=== PATIENT | male | born 1975 | race Caucasian/White ===

== ENCOUNTER 2023-04-20 09:30 | Emergency (ER) | payer BC ==
[~2023-04-20] VITALS: Ht 180.3 cm; Wt 107.9 kg
[2023-04-20] MEDS ORDERED: SIMV10TA21 PO (09:44)
[2023-04-20] MEDS ORDERED: HYDR12.55 PO (09:44)
[2023-04-20] MEDS ORDERED: CEPH250T PO (09:44)
[2023-04-20] MEDS ORDERED: LISI20TA33 PO (09:44)
[2023-04-20] MEDS ORDERED: ISOVUE-370 76% 100ML VIAL As Ordered ONE (10:31)
[2023-04-20 10:33] LABS: BASO % 0.2 % (0.0-1.0); EOS % 0.3 % (0.0-3.0); HEMOGLOBIN 13.3 g/dl (13.5-17.5); LYMPH # 1.4 10^3/uL (1.5-5.0); LYMPH % 16.7 % (24.0-44.0); MEAN CORPUSCULAR HEMOGLOBIN 29.4 pg (27.0-33.0); MEAN CORPUSCULAR HGB CONC 34.1 g/dl (32.0-36.5); MEAN CORPUSCULAR VOLUME 86.3 fl (80.0-96.0); MONO # 0.8 10^3/uL (0.0-0.8); MONO % 9.2 % (2.0-8.0); NEUTROPHILS # 6.3 10^3/uL (1.5-8.5); NEUTROPHILS % 73.3 % (36.0-66.0); PLATELET COUNT, AUTOMATED 188 10^3/uL (150-450); RED BLOOD COUNT 4.52 10^6/uL (4.30-6.10); WHITE BLOOD COUNT 8.6 10^3/uL (4.0-10.0)
[2023-04-20 10:54] LABS: ALBUMIN 3.9 G/DL (3.2-5.2); BILIRUBIN,DIRECT 0.3 MG/DL (<0.4); TOTAL PROTEIN 6.9 G/DL (5.7-8.2)
[2023-04-20] MEDS ORDERED: CIPR-249 PO ×2 (11:21→12:02)
[2023-04-20] MEDS ORDERED: METR-265 PO ×2 (11:21→12:02)
[2023-04-20 11:28] VITALS: BP 133/89; TEMP 98.1; O2SAT 99
== END 2023-04-20 11:31 | disposition home or self-care (01) ==
LOC: M ED 09:30
DX: K57.30 Diverticulosis of large intestine without perforation or abscess without bleeding (principal); I10 Essential (primary) hypertension; F10.10 Alcohol abuse, uncomplicated; Z79.811 Long term (current) use of aromatase inhibitors; Z79.2 Long term (current) use of antibiotics; Z79.899 Other long term (current) drug therapy
CPT/HCPCS: 36415; 74177; 80047; 80076; 83690; 85025; 99284; Q9967